=== PATIENT | male | born 1950 | race Caucasian/White ===

== ENCOUNTER 2016-09-11 06:54 | Inpatient (IN) ==
[2016-09-11] MEDS ORDERED: MORPHINE 2 MG/1 ML SYRINGE IV PRN (07:05)
[2016-09-11] MEDS ORDERED: ACETAMINOPHEN 325 MG TABLET PO PRN (07:05)
[2016-09-11] MEDS ORDERED: DOCUSATE SODIUM 100 MG CAPSULE PO PRN (07:05)
[2016-09-11] MEDS ORDERED: BISACODYL 5 MG TABLET PO PRN (07:05)
[2016-09-11] MEDS ORDERED: MAGNESIUM SULF RIDER 4 GM in PREMIX 1 EACH IV PRN (07:05)
[2016-09-11] MEDS ORDERED: ONDANSETRON 4 MG/2 ML VIAL IV PRN (07:05)
[2016-09-11] MEDS ORDERED: MAGNESIUM SULF RIDER 2 GM in PREMIX 1 EACH IV PRN (07:05)
[2016-09-11] MEDS ORDERED: ZALEPLON 5 MG CAPSULE PO PRN (07:05)
--- NOTE | 2016-09-11 07:11 | Event Note ---
See history and physical dated 08/31/2016 from clinic. The patient presents for elective admission for sotalol loading. There has been no clinical change since he was seen in clinic. His exam is also unchanged.
--- NOTE | 2016-09-11 08:18 | EKG Report ---
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
[2016-09-11] MEDS ORDERED: DILTIAZEM CD 120 MG CAPSULE PO SCH (09:00)
[2016-09-11] MEDS: NEBIVOLOL 10 MG TABLET PO SCH (10:01)
[2016-09-11] MEDS: APIXABAN 5 MG TABLET PO SCH ×2 (10:02→20:49)
[2016-09-11] MEDS: DILTIAZEM 90 MG TABLET PO SCH ×3 (10:02→20:49)
[2016-09-11] MEDS: MAGNESIUM OXIDE 400 MG TABLET PO SCH (10:02)
[2016-09-11] MEDS: SOTALOL 80 MG TABLET PO SCH ×2 (10:02→20:49)
[2016-09-11 10:15] LABS: Basophils % 0.4 % (0.0-0.8); Eosinophils # 0.1 10*3/uL (0.0-0.87); Eosinophils % 2.5 % (0.00-10.9); Hematocrit 37.4 VOL% (42.0-52.0); Hemoglobin 13.1 GM/DL (14.0-18.0); Immature Granulocytes % 1.1 %; Immature Granulocytes Absolute 0.05 #; Lymphocytes # 1.5 10*3/uL (1.4-4.0); Lymphocytes % 30.9 % (21.2-54.2); Mean Corpuscular Hemoglobin 35 PG (27-34); Mean Corpuscular Volume 98.7 FL (87-102); Monocytes # 0.3 10*3/uL (0.11-0.8); Monocytes % 5.9 % (1.7-12.7); Neutrophils # 2.8 10*3/uL (1.4-7.4); Neutrophils % 59.2 % (38.7-73.9); Platelet Count 129 T/CUMM (130-400); Red Blood Count 3.79 MC/CUMM (3.8-5.5); Red Cell Distribution Width 12.5 % (9.3-17.3); White Blood Count 4.7 T/CUMM (4-12)
[2016-09-11 11:28] LABS: Albumin 3.3 G/DL (3.4-5.0); Bilirubin,Total 0.5 MG/DL (0.2-1.0); Calcium 8.4 MG/DL (8.5-10.1); Magnesium 1.8 MG/DL (1.8-2.4); Potassium 3.7 MMOL/L (3.5-5.1); Thyroid Stimulating Hormone 5.63 uIU/ml (0.358-3.74)
[2016-09-12 06:18] LABS: Calcium 8.8 MG/DL (8.5-10.1); Osmolality,Calculated 282.1 MOS/KG (273-304); Potassium 4.2 MMOL/L (3.5-5.1)
--- NOTE | 2016-09-12 07:36 | EKG Report ---
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
[2016-09-12] MEDS: NEBIVOLOL 10 MG TABLET PO SCH (09:00)
[2016-09-12] MEDS: MAGNESIUM OXIDE 400 MG TABLET PO SCH (09:00)
[2016-09-12] MEDS: DILTIAZEM 90 MG TABLET PO SCH ×3 (09:00→19:59)
[2016-09-12] MEDS: SOTALOL 80 MG TABLET PO SCH ×2 (09:00→19:59)
[2016-09-12] MEDS: APIXABAN 5 MG TABLET PO SCH ×2 (09:01→19:59)
--- NOTE | 2016-09-12 16:18 | Cardiology Progress Note ---
Assessment and Plan (1) Atrial fibrillation Status: Chronic Assessment and plan: We're loading him with sotalol to try to rhythm control him. We should consider repeat cardioversion depending on his response to therapy. We will keep him nothing by mouth past midnight. He will complete 6 doses of 80 mg after his second dose on Tuesday. Current Visit: Yes (2) High risk medication use Status: Acute Current Visit: Yes Cardiology - PN: Subj Interval history: The patient was admitted electively yesterday for sotalol load. He has atrial fibrillation and is status post failed cardioversion. He is tolerating sotalol , but remains in atrial fibrillation. He denies any chest pain, shortness of breath. Exam (Progress Note) - Constitutional Vitals: Period Temp Pulse Resp BP Sys/Roque Pulse Ox Last 24 Hr 97.3 F-98.4 F 65-100 18-20 113-147/60-86 95-100 Exam: General appearance: normal weight, no acute distress - Head Head exam: Present: normal inspection, normocephalic, atraumatic. Absent: hematoma, laceration - Eye Eye exam: Present: EOMI. Absent: conjunctival injection, nystagmus, periorbital swelling, scleral icterus, laceration to eyelids Pupils: Present: PERRL. Absent: constricted, dilated, fixed, irregular, unequal - ENT ENT exam: Present: normal exam, normal external ear exam - Neck Neck exam: Present: normal inspection. Absent: lymphadenopathy, meningismus, tenderness, thyromegaly - Respiratory Respiratory exam: Present: clear to auscultation bilaterally. Absent: accessory muscle use, chest wall tenderness - Cardiovascular Cardiovascular exam: Present: Irregularly irregular rate and rhythm. Absent: carotid bruit, gallop, JVD, rubs - GI/Abdominal GI/Abdominal exam: Present: normal bowel sounds, soft. Absent: distended, firm , guarding, hernia, mass, tenderness, rebound. - Extremities Exam Extremities exam: Present: normal inspection, normal capillary refill. Absent: calf tenderness, edema - Back Exam Back exam: Present: normal inspection. Absent: muscle spasm, vertebral tenderness - Neurological Exam Neurological exam: Present: alert, oriented X3, grossly intact without resting or intention tremor - Psychiatric Psychiatric exam: Present: normal affect, normal mood - Skin Skin exam: Present: normal color, warm, dry, intact. Absent: cyanosis, diaphoretic, rash, urticaria Result/EKG - Labs CBC & BMP: 09/11/16 10:00 09/12/16 05:12 Lab Results: I have reviewed the past 24 hour labs Labs: Laboratory Results - last 24 hr 09/12/16 09/12/16 05:10 05:12 Sodium 142 Potassium 4.2 Chloride 108 H Carbon Dioxide 24 Anion Gap 14.2 BUN 12 Creatinine 1.00 GFR Calculation 93 BUN/Creatinine Ratio 12.00 Glucose 100 Calculated Osmolality 282.1 Calcium 8.8 Magnesium 2.0 Free T4 0.86 - EKG EKG results: interpreted by me EKG shows: atrial fibrillation (without QT prolongation)
[2016-09-13 05:45] LABS: Calcium 8.3 MG/DL (8.5-10.1); Magnesium 2.1 MG/DL (1.8-2.4); Osmolality,Calculated 281.1 MOS/KG (273-304)
--- NOTE | 2016-09-13 07:35 | EKG Report ---
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
--- NOTE | 2016-09-13 08:43 | Cardiology Progress Note ---
Assessment and Plan (1) Atrial fibrillation with rapid ventricular response Status: Resolved Assessment and plan: 66yM with persistent symptomatic AF, HTN, ETOH, history of mild cardiomyopathy, with recovered ejection fraction. -Discussed risks and benefits of management options. -We will proceed with a cardioversion today. Electrolytes are normal, he is n.p.o. -Continue sotalol, discontinue Bystolic. Will assess heart rate post cardioversion, we may continue the calcium channel sidra. -If the A. fib recurs, ablation as an option. 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 -Continue anticoagulation with Eliquis. No missed doses in the last month Current Visit: No (2) Chest pain Status: Acute Current Visit: No (3) Alcohol drinker Status: Chronic Current Visit: No (4) Hypomagnesemia Status: Resolved Current Visit: No (5) Atrial fibrillation Status: Chronic Current Visit: Yes (6) High risk medication use Status: Acute Current Visit: Yes Cardiology - PN: Subj Interval history: He is still in af. Rate well controlled. GFR preserved. QTc normal. Exam (Progress Note) - Constitutional Vitals: Period Temp Pulse Resp BP Sys/Roque Pulse Ox Last 24 Hr 97.1 F-99.0 F 68-84 18-20 113-140/69-88 98-99 General appearance: over weight - Head Head exam: Present: normal inspection - Eye Eye exam: Absent: conjunctival injection Pupils: Absent: dilated - ENT ENT exam: Present: normal external ear exam - Neck Neck exam: Present: normal inspection - Respiratory Respiratory exam: Present: clear to auscultation bilaterally - Cardiovascular Cardiovascular exam: Present: irregular rhythm - GI/Abdominal GI/Abdominal exam: Present: normal bowel sounds - Extremities Exam Extremities exam: Present: normal inspection, normal capillary refill. Absent: edema - Back Exam Back exam: Present: normal inspection - Neurological Exam Neurological exam: Present: alert, oriented X3 - Psychiatric Psychiatric exam: Present: normal affect, normal mood - Skin Skin exam: Present: normal color, warm, cyanosis Result/EKG - Labs CBC & BMP: 09/11/16 10:00 09/13/16 04:56 Lab Results: I have reviewed the past 24 hour labs Labs: Laboratory Results - last 24 hr 09/12/16 09/13/16 05:10 04:56 Sodium 142 Potassium 4.0 Chloride 108 H Carbon Dioxide 25 Anion Gap 13.0 BUN 11 Creatinine 1.00 GFR Calculation 93 BUN/Creatinine Ratio 11.00 Glucose 91 Calculated Osmolality 281.1 Calcium 8.3 L Magnesium 2.1 Free T4 0.86 - EKG EKG results: interpreted by me
--- NOTE | 2016-09-13 08:50 | History and Physical Update ---
Sedation H&P Update - History and Physical H&P was reviewed, the patient examined and there: are no changes in the patients condition since last H&P was completed. - Dictation Physical: refer to H&P completed by admitting physician - Physical Exam Mental Status: alert and oriented Heart: other (irregular) Lung: clear to auscultation Abdomen: within normal limits Vitals: within normal limits - Sedation Plan for Sedation: other (sedation by the anesthesia team) Patient Consent: Procedure disscussed with patient and patinet has consented., Risks and benefits were discussed with patient,including infection,, bleeding, injury to surrounding structures, seizure, temporary nerve, Patient understands and accepts potential risks/benefits and agrees to ASA Class: III Airway Assessment: Class II: Soft palate, uvula, fauces visible
--- NOTE | 2016-09-13 10:44 | Electrophysiology Report ---
Date of Procedure:: 09/13/16 Pre-op diagnosis: AF Post-op diagnosis: same Procedure: PROCEDURAL SUMMARY Synchronized DC cardioversion. Successful procedure, no complications. Timeout was performed before the procedure. Sedation was provided by the anesthesia team. The patient was is atrial fibrillation. Synchronized DC cardioversion was performed with a 200 J biphasic shock. Sinus rhythm at 60 bpm restored. The patient woke up uneventfully from sedation. There were no complications. Plan: -continue anticoagulation with Eliquis -continue sotalol -resume diet -plan to d/c home today if stable Surgeon / Physician: Gael Gillespie
--- NOTE | 2016-09-13 10:55 | EKG Report ---
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
--- NOTE | 2016-09-13 11:14 | Anesthesia ---
Anesthesia Post OP - Post Ansesthetic Evaluation Patient seen in post op: Yes Resp: within normal limits CV: within normal limits Mental: within normal limits Temp: within normal limits [id number]: within normal limits Nausea and Vomiting: within normal limits Pain: within normal limits
[2016-09-13] MEDS ORDERED: fentaNYL 100 MCG/2 ML VIAL ONE (11:18)
[2016-09-13] MEDS ORDERED: MIDAZOLAM 2 MG/2 ML VIAL ONE (11:18)
[2016-09-13] MEDS ORDERED: PROPOFOL 200 MG/20 ML VIAL IV ONE (11:18)
[2016-09-13 12:22] VITALS: BP 130/81
[2016-09-13] MEDS: MAGNESIUM OXIDE 400 MG TABLET PO SCH (12:48)
[2016-09-13] MEDS: APIXABAN 5 MG TABLET PO SCH (12:48)
[2016-09-13] MEDS: DILTIAZEM 90 MG TABLET PO SCH (12:48)
[2016-09-13] MEDS: SOTALOL 80 MG TABLET PO SCH (12:48)
--- NOTE | 2016-09-13 13:16 | Discharge Summary ---
Hospital Course - Hospital Course Hospital Course: Mr. Hoffman is a 66-year-old male, followed by Dr. Lugo. History of symptomatic, persistent atrial fibrillation, EtOH. He had a cardioversion 2 months ago, but relapsed promptly to A. fib. He was admitted for sotalol load, then cardioversion. The QTc remained normal, no proarrhythmia was noted. Uneventful synchronized DC cardioversion was performed. He will be discharged home, follow-up with Dr. Lugo in 2 weeks. -Continue sotalol 80 mg twice daily, Cardizem CD 120 mg daily. The Bystolic was discontinued due to mild bradycardia post cardioversion. -Continue anticoagulation with Eliquis. -Continue magnesium supplementation. He will need to cut back on EtOH. -If the A. fib remains refractory and symptomatic, ablation as an option. 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 Diagnosis - Discharge Diagnosis (1) Atrial fibrillation with rapid ventricular response Status: Resolved (2) Chest pain Status: Acute (3) Alcohol drinker Status: Chronic (4) Hypomagnesemia Status: Resolved (5) Atrial fibrillation Status: Chronic (6) High risk medication use Status: Acute Discharge Plan - Discharge Data Disposition: Disch To Home/Self Care Condition at Discharge: Stable Discharge Diet: advance to your usual diet Activity: resume usual activities as tolerated Hygiene: no restrictions Weight Bearing at Discharge: full weight bearing Driving: no restrictions Contact your physician if you experience:: fever over 101, Difficulty voiding, Redness or swelling, Nausea/Vomiting, Shortness of breath, Bleeding, pain uncontrolled by pain medications - Discharge Medications New Diltiazem Cd Cap [Cardizem CD] 120 mg PO DAILY #90 capsule Sotalol [Betapace] 80 mg PO BID #180 tablet Continue Apixaban [Eliquis] 5 mg PO BID #60 tablet Magnesium Oxide 400 mg PO DAILY #30 tablet Discontinued Diltiazem Cd Cap [Cardizem CD] 240 mg PO DAILY #30 capsule Nebivolol HCl [Bystolic] 20 mg PO DAILY - Follow Up or Referral Follow Up: Clau Lugo MD [Physician] - 2 Weeks (With BMP.Mg, EKG) - Forms/Instructions Exam - Constitutional Vitals: Period Temp Pulse Resp BP Sys/Roque Pulse Ox Last 24 Hr 97.1 F-99.0 F 56-84 18-20 124-140/77-88 97-99 General appearance: over weight - Head Head exam: Present: normal inspection - Eye Eye exam: Absent: conjunctival injection Pupils: Absent: dilated - ENT ENT exam: Present: normal external ear exam - Neck Neck exam: Present: normal inspection - Respiratory Respiratory exam: Present: clear to auscultation bilaterally - Cardiovascular Cardiovascular exam: Present: regular rate and rhythm - GI/Abdominal GI/Abdominal exam: Present: normal bowel sounds - Extremities Exam Extremities exam: Present: normal inspection, normal capillary refill - Back Exam Back exam: Present: normal inspection - Neurological Exam Neurological exam: Present: alert, oriented X3 - Psychiatric Psychiatric exam: Present: normal affect, normal mood - Skin Skin exam: Present: normal color, warm. Absent: cyanosis Discharge Results Procedures and tests throughout hospitalization: Pending Orders 09/13/16 08:55 CL heart Routine 09/14/16 04:00 Basic Metabolic Panel IN AM CBC [Comp Blood Count Auto Diff] IN AM Magnesium IN AM Labs on day of discharge: Labs from last 24 hours 09/13/16 04:56 Sodium 142 Potassium 4.0 Chloride 108 H Carbon Dioxide 25 Anion Gap 13.0 BUN 11 Creatinine 1.00 GFR Calculation 93 BUN/Creatinine Ratio 11.00 Glucose 91 Calculated Osmolality 281.1 Calcium 8.3 L Magnesium 2.1 - Imaging and Cardiology Cardiology Procedure: image reviewed by me, report reviewed by me DS: Provider Date of admission: 09/11/16 07:06 Primary care physician: . No PCP Attending physician on admission: Clau Lugo, Consults: 09/11/16 09:27 Consult to Pharmacy [CONS] Routine Reason for Pharmacy Consult: Adjust Meds Renal Funct 09/11/16 14:06 Consult to Pharmacy [CONS] Routine Reason for Pharmacy Consult: Adjust Meds Renal Funct Discharging clinician: Gael Gillespie MD Expected date of discharge: 09/13/16
[2016-09-14] MEDS ORDERED: DILTIAZEM CD 120 MG CAPSULE PO SCH (09:00)
== END 2016-09-13 15:00 | disposition home or self-care (01) | DRG 310 ==
LOC: N.TELEN 07:06
PROVIDERS: ADMIT Internal Medicine Cardiovascular Disease; ATTEND Internal Medicine Cardiovascular Disease